=== PATIENT | female | born 1995 | race Caucasian/White ===

== ENCOUNTER 2024-10-01 12:55 | Emergency (ER) | payer MEDICAID ==
[~2024-10-01] VITALS: Ht 165.1 cm; Wt 110.8 kg
--- NOTE | 2024-10-01 16:23 | Physician Documentation ---
History of Present Illness General Chief Complaint: Back Pain Stated Complaint: BACK PAIN- Time Seen by MD: 14:45 History of Present Illness Initial Comments A 29-year-old female who is seven months presents to the emergency department with a complaint of lower back pain. Reports four days ago while sitting with cross leg she thought that she may be under beginning of sciatica. Today while she was loading the wood piler she felt acute pain. Pain is radiating down both legs. He has been no loss of bowel or bladder. No reported fever. Medication Reconciliation Allergies: Coded Allergies: No Known Allergies (Unverified , 10/01/24) Review of Systems All Other Systems at this time: Reviewed and Negative Musc: Reports: back pain Physical Exam Physical Exam Vital Signs: RN Vital Signs have been reviewed: Yes, Temperature: 97.8, Source: Oral, Heart Rate: 71, Respiratory Rate: 18, BP: 90/62, Pulse Oximetry: 96, Weight: 110.800 Oxygen Flow Rate: 0 General Appearance: alert, WD/WN, moderate distress Head: normal inspection Face: normal inspection Pupils/EOM/Fundus: PERRLA Respiratory: no respiratory distress Back: decreased range of motion, muscle spasm Neurologic: oriented x4 Motor / Sensory: no motor deficit, no sensory deficit Psychiatric: normal mood/affect Skin: normal color, warm/dry; No: rash Progress Results/Orders Results/Orders Completed Orders - OLGA SIFUENTES Acetaminophen 1,000mg/100ml Iv (Ofirmev (10/01/24 16:20) Lidocaine 5% Patch (Lidoderm 5% Patch) (10/02/24 08:00) Lidocaine 5% Patch (Lidoderm 5% Patch) (10/01/24 16:50) Vital Signs 10/01/24 10/01/24 13:13 15:32 Temp 97.8 Pulse 82 71 Resp 16 18 B/P (MAP) 112/75 90/62 (71) Pulse Ox 95 96 O2 Flow Rate 0 0 Medical Decision Making Differential Diagnosis Examination & history consistent with acute sciatica without suspicion for cauda equina syndrome, diskitis or epidural abscess. Topical Lidoderm patch and acetaminophen in the emergency department we will safe and appropriate and effective. Patient was to follow up with OB. She was discharged grossly neurologically intact without focal neuro deficits. Able to heel walk and toe walk. Safely discharged to follow up with the OB. Departure Disposition: HOME / SELF CARE / HOMELESS Impression: Primary Impression: Sciatica Qualified Codes: M54.31 - Sciatica, right side; M54.32 - Sciatica, left side Condition: Improved Discharge Instructions: Sciatica Additional Instructions: Your examination & history today in the emergency department is consistent with sciatica. Topical Lidoderm derm patches are appropriate and safe with . You received Tylenol intravenous while in the emergency department. Make follow up appointment with your OB for other alternative safe measures. Return to the emergency department inferior neurological status changes. Thank you for visiting [facility]. Referrals: NO PRIMARY CARE PROVIDER (PCP) Prescriptions Lidocaine (Lidoderm) 5 % Adh..patch 1 PATCH TD DAILY, #10 BOXS Apply 1 patch daily for 12 hours then off for 12 hours May sub 15 grams 4 pct lidocaine cream if patches are cost peohibitive Prov: OLGA SIFUETNES PAC 10/01/24 Education Educated: Patient Educated regarding: diagnosis Signature Scribe Signature: . Attestation: . OLGA SIFUENTES PAC October 01, 2024 16:23
[2024-10-01] MEDS ORDERED: LIDO700A32 TD (17:05)
[2024-10-01] MEDS: LIDOcaine 5% patch TP ONE (17:08)
[2024-10-01] MEDS: acetaminophen 1,000mg/100ml IV 100 ML IV ONE (17:08)
[2024-10-01 17:39] VITALS: BP 90/62; PULSE 71; RESP 16; TEMP 97.8; O2SAT 96
[2024-10-02] MEDS ORDERED: LIDOcaine 5% patch TP SCH (08:00)
== END 2024-10-01 17:40 | disposition home or self-care (01) ==
LOC: ER 12:56
DX: O26.891 Other specified pregnancy related conditions, first trimester (principal); M54.32 Sciatica, left side; M54.31 Sciatica, right side; Z3A.01 Less than 8 weeks gestation of pregnancy
CPT/HCPCS: 96365; 99284; J0131

== ENCOUNTER 2025-04-15 13:15 | Emergency (ER) | payer MEDICAID ==
[~2025-04-15] VITALS: Ht 162.6 cm; Wt 110.8 kg
[~2025-04-15 13:15] MED LIST: LIDO-52 TD
[2025-04-15 13:35] VITALS: BP 125/65; PULSE 79; RESP 18; TEMP 97.1; O2SAT 98
--- NOTE | 2025-04-15 16:20 | Physician Documentation ---
History of Present Illness ~ Chief Complaint: Bite-animal Stated Complaint: RABIES VACCINE Time Seen by MD: 15:59 HPI 30-year-old female presents to the ED with concerns over potential previous exposure secondary to a cat that may or may not have had rabies that any the CAT that has part of the the litter they has a their house is being tested for rabies no firm story results at this time. There animals are completely asymptomatic and pt wanted to get checked Tetanus within 5 years?: No Medication Reconciliation Allergies: Coded Allergies: No Known Allergies (Unverified , 04/15/25) Scheduled Lidocaine (Lidoderm), 1 PATCH TD DAILY Review of Systems All Other Systems at this time: Reviewed and Negative ROS As stated above in the HPI, otherwise all systems are reviewed and negative. Physical Exam Vital Signs: Temperature: 97.1, Source: Temporal, Heart Rate: 79, Respiratory Rate: 18, BP: 125/65, Pulse Oximetry: 98, Weight: 110.800 Oxygen Flow Rate: 0 Physical Exam General: Alert, no apparent distress. HEENT: PERRL, EOMI, no injection, moist mucous membranes. Neck: Full range of motion. Respiratory: Lungs clear, no respiratory distress. Chest: No accessory muscle use. Cardiovascular: Regular rate and rhythm, no murmurs. Gastrointestinal: Soft, nontender, nondistended. Bowels sounds present. Extremities: Normal range of motion, no deformity. Neurologic: Oriented x4. Psychiatric: Normal mood and affect. Skin: Normal color, warm and dry. No edema, no ecchymosis. Progress Results/Orders Results/Orders Vital Signs 04/15/25 13:35 Temp 97.1 Pulse 79 Resp 18 B/P (MAP) 125/65 Pulse Ox 98 O2 Flow Rate 0 Medical Decision Making Additional information obtaine: old records Findings i explained the patient that the percentage of rabies transmission from feline in the [place] is extremely low. considering their pets are asymptomatic, there is even a lower chance of any transmission to humans. 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 for further evaluation of their animals Differential Dx:Considerations: Include: Abrasion, Allergic reaction, Anaphylaxis, Cellulitis, Contusion, Fracture, Hematoma, Insect envenomation, Laceration, Neurovascular injury, Punture wound, Retained foreign body, Urticaria, Other Departure Disposition: 01 HOME / SELF CARE / HOMELESS Impression: Primary Impression: General medical exam Condition: Stable Discharge Instructions: Animal Bite, Adult, Rabies Referrals: NO PRIMARY CARE PROVIDER (PCP) Signature Scribe Signature: r Attestation: Scribed for Aba Webber Hand Alterations Seamstress by Aba Hargrove NP . 04/15/25 22:57 ABA WEBBER NP Apr 15, 2025 16:19
== END 2025-04-15 16:43 | disposition home or self-care (01) ==
LOC: ER 13:15
DX: Z00.00 Encounter for general adult medical examination without abnormal findings (principal); Z79.899 Other long term (current) drug therapy
CPT/HCPCS: 99282